=== PATIENT | female | born 1995 | race Caucasian/White ===

== ENCOUNTER 2016-04-12 08:35 | Observation (INO) | payer OTHER ==
[2016-04-12] VITALS (12 sets, daily range): BP systolic 106–123; BP diastolic 54–77; PULSE 54–80; TEMP 97.6–98.9
[~2016-04-12] VITALS: Ht 170.2 cm; Wt 70.5 kg
[~2016-04-12 08:35] MED LIST: BIRTH CONTROL; PROAIR HFA0.09 MG/AC IH
[2016-04-12 09:12] LABS: BASO % 0.3 % (0.0-2.0); EOS # 0.2 (0.0-0.7); EOS % 1.8 % (0-4.0); GRAN # 9.6 (1.4-6.5); GRAN % 74.2 % (42.2-75.2); HEMOGLOBIN 14.8 g/dl (12.5-16.0); LYMPH # 2.3 (1.2-3.4); MEAN CELL VOLUME 94 fl (80.0-100.0); MEAN CORPUSCULAR HEMOGLOBIN 32 pg (27.0-31.0); MEAN CORPUSCULAR HGB CONC 34 g/dl (33.0-37.0); MEAN PLATELET VOLUME 8.5 fl (7.4-10.4); MONO # 0.7 (0.1-0.6); MONO % 5.4 % (1.7-9.3); PLATELET COUNT 281 K/mm3 (130-400); RED BLOOD COUNT 4.69 M/mm3 (4.10-5.30); REDCELL DISTRIBUTION WIDTH-CV 12.5 % (11.5-14.5)
[2016-04-12 09:27] LABS: ADJUSTED CALCIUM 9.1 mg/dL (8.4-10.2); ALBUMIN 4.8 gm/dL (3.5-5.0); BILIRUBIN,TOTAL 0.4 mg/dL (0.0-1.0); CALCIUM 9.7 mg/dL (8.4-10.2); CREATININE, serum 0.64 mg/dL (0.52-1.25); TOTAL PROTEIN 8.4 gm/dL (6.4-8.2)
[2016-04-12 09:54] LABS: PH 5 (5-8); SQUAMOUS EPITHELIAL 0-2 /hpf; URINE APPEARANCE Clear; URINE BACTERIA Rare /hpf; URINE BILIRUBIN Negative (NEGATIVE); URINE BLOOD 1+ (NEGATIVE); URINE COLOR Straw; URINE GLUCOSE Negative (NEGATIVE); URINE KETONE Negative (NEGATIVE); URINE RBC 0-2 /hpf; URINE UROBILINOGEN Negative (NEGATIVE); URINE WBC 0-2 /hpf
[2016-04-13 05:09] VITALS: BP 94/57; PULSE 70; TEMP 98.7
[2016-04-13] MEDS ORDERED: NORCO 325 MG-51 TAB PO (09:14)
== END 2016-04-13 10:00 | disposition home or self-care (01) ==
LOC: COL.ER 08:35 → SURG 10:53 → SDCO 10:53 → SURG 12:41 → SDCO 12:41 → SURG 12:41
PROVIDERS: Emergency Medicine
DX: K35.80 Unspecified acute appendicitis (principal)
CPT/HCPCS: G0378; J1170; J1885; J2250; J2405; J2543; J2704; J2765; J3010; J7030; J7050; Q9967